=== PATIENT | female | born 1995 | race Hispanic/Latino ===

== ENCOUNTER 2017-04-16 10:39 | Emergency (ER) | payer OTHER ==
[~2017-04-16] VITALS: Ht 149.9 cm; Wt 44.9 kg
[~2017-04-16 10:39] MED LIST: Docusate Sodium PO; FERR159T2 PO; Ibuprofen PO; PREN-99 PO
[2017-04-16 10:48] VITALS: BP 116/70; PULSE 99; RESP 14; O2SAT 100
--- NOTE | 2017-04-16 12:29 | ED.REPORT ---
HPI- Female Date of Service Apr 16, 2017 ED Provider: Jacques Zayas PA-C Elicia is an otherwise healthy 21-year-old female presented with a chief complaint of swollen labia. Patient reports a 5 day history of vaginal itching , three-day history of swelling first on the left labia then bilaterally as well as clear discharge. Swelling and discharge were first noticed after sexual intercourse. Associated with dysuria, nausea, diarrhea. Symptoms were preceded by an extended period of vaginal bleeding, tampon use as well as right lower quadrant pain which was attributed to a copper IUD that was removed approximately 4 days ago. The symptoms have resolved. She reports a negative GC/Chlamydia test 3 weeks ago performed by [facility]. She has little concern for sexually transmitted infection. Denies fever, chills, malaise, hematuria. Denies new soaps or lotions. Nursing Notes Stated Complaint: SWOLLEN LABIA Chief Complaint: Female Abdominal Pain Nursing Notes Reviewed: Yes Allergies: Coded Allergies: citalopram (Verified Allergy, Unknown, 03/28/16) fluoxetine (Verified Allergy, Unknown, 03/28/16) paroxetine (Verified Allergy, Unknown, 03/28/16) tramadol (Verified Allergy, Unknown, Rash, 03/28/16) Uncoded Allergies: HYDROBROMIDE (Allergy, Unknown, 05/08/15) Scheduled ([Docusate Sodium]) 100 MG CAPSULE 100 MG PO BID Cephalexin (Cephalexin) 500 Mg Capsule 500 MG PO QID Doxycycline Monohydrate (Avidoxy) 100 Mg Tablet 100 MG PO BID Ferrous Sulfate, Dried (Iron) 159 Mg Tablet.er Unknown Dose PO DAILY Pnv95/Ferrous Fumarate/FA ( Multivitamins Tablet) 1 Each Tablet 1 EACH PO DAILY Scheduled PRN ([Ibuprofen]) 800 MG TABLET 600 MG PO Q6H PRN PRN For Pain General Time Seen by MD: 12:11 Chief Complaint Other (labia swelling) Sudden in Onset?: No Past Medical History Past Medical History 1 live 2 years ago Past Surgical History None reported Smoking History Current Every Day Smoker Social History Alcohol Use: Denies alcohol use Other Social History: Local resident Ambulatory Status Independent Review of Systems Negative unless stated otherwise in history of present illness Physical Exam General: Well appearing, well developed, well nourished, no acute distress. Head: Atraumatic, normocephalic. Eyes: No scleral icterus or injection. No discharge. Vision grossly intact. ENT: Voice clear, hearing grossly intact. Respiratory: Regular rate and rhythm. Breath sounds present, clear to auscultation and equal bilaterally. No respiratory distress. No increased work of breathing, speaks in complete sentences. Cardiovascular: Regular rate and rhythm, without murmur, gallop or rub. No pedal edema. Gastrointestinal: Abdomen flat and non-tender without guarding or rebound. Bowel sounds normoactive. : Labia minora edematous and tender bilaterally. Otherwise normal external genitalia without lesions. Slight white discharge noticed externally. Speculum examination reveals edematous cervix, copious mucopurulent discharge, dark curd-like discharge present in vaginal canal. No bleeding, lesions or masses noted. Mild right adnexal tenderness on bimanual exam. Negative cervical motion tenderness, left adnexal tenderness. Skin: Warm and dry. Neurological: Grossly nonfocal. Psychological: Alert and oriented. Speech appropriate, linear and logical. Behavior appropriate. Initial Vital Signs Vital Signs (First) Date Time Temp Pulse Resp B/P Pulse Ox O2 Delivery O2 Flow Rate FiO2 04/16/17 10:48 36.4 99 14 116/70 100 Room Air Initial VS: Vital signs normal Interpretation & Diagnostics Interpretation & Diagnostics: MAU WET PREP VAG OR REC Final 04/16/17-1332 WBCS FEW YEAST NONE SEEN CLUE CELLS NONE SEEN TRICHOMONAS NONE SEEN Lab Results Interpretation Result Diagram: 04/16/17 1315 04/16/17 1315 Test 04/16/17 12:34 04/16/17 13:15 Urine Color Yellow (YELLOW) Urine Appearance Hazy (CLEAR,HAZY) Urine pH 5.5 (5.0-8.0) Urine Specific [place] 1.025 (1.003-1.035) Urine Protein Tracemg/dL (NEG,TRACE) Urine Glucose (UA) Negativemg/dL (NEGATIVE) Urine Ketones 15mg/dL (NEGATIVE) Urine Occult Blood Trace (NEGATIVE) Urine Nitrite Negative (NEGATIVE) Urine Bilirubin Negative (NEGATIVE) Urine Urobilinogen Normalmg/dL (NORMAL) Urine Leukocyte Esterase Moderate (NEGATIVE) Urine RBC 3-10/hpf (0-2) Urine WBC 11-50/hpf (0-5) Urine Epithelial Cells Occasional/hpf (NONE-MOD) Urine Crystals None seen (NONE SEEN) Urine Bacteria Few/hpf (NONE-FEW) Urine Hyaline Casts None/lpf (NONE) Urine Granular Casts None seen (NONE SEEN) Urine Waxy Casts None seen (NONE SEEN) Urine Red Blood Cell Casts None seen (NONE SEEN) Urine White Blood Cell Casts None seen (NONE SEEN) Urine Mucus Present (None Seen) Urine Trichomonas None seen (NONE SEEN) Urine Yeast None (NONE SEEN) Urinalysis Comment None Urine Culture Reflexed Indicated White Blood Count 11.3th/mm3 (3.8-10.1) Red Blood Count 4.23mil/mm3 (3.90-5.20) Hemoglobin 12.8g/dL (12.0-15.6) Hematocrit 38.2% (35.0-46.0) Mean Corpuscular Volume 90.3fL (81-100) Mean Corpuscular Hemoglobin 30.3pg (27.0-35.0) Mean Corpuscular Hemoglobin Concent 33.5% (32.0-37.0) Red Cell Distribution Width 12.8% (12.3-15.4) Platelet Count 278bil/L (150-400) Neutrophils (%) (Auto) 74.2% (40-74) Lymphocytes (%) (Auto) 19.0% (14-46) Monocytes (%) (Auto) 5.6% (4-12) Eosinophils (%) (Auto) 0.6% (0-5) Basophils (%) (Auto) 0.4% (0-3) Sodium Level 138mEq/L (134-144) Potassium Level 4.0mEq/L (3.5-5.2) Chloride Level 103mEq/L (97-108) Carbon Dioxide Level 20mmol/L (18-29) Blood Urea Nitrogen 14mg/dL (6-20) Creatinine 0.71mg/dL (0.57-1.00) Estimat Glomerular Filtration Rate 147mL/min (>59) Glucose Level 80mg/dL (60-99) Calcium Level 9.2mg/dL (8.5-10.1) Total Bilirubin 0.5mg/dL (0.0-1.2) Aspartate Amino Transf (AST/SGOT) 22U/L (0-50) Alanine Aminotransferase (ALT/SGPT) 15U/L (0-32) Alkaline Phosphatase 40U/L (25-150) Total Protein 7.2g/dL (6.4-8.4) Albumin 4.2g/dL (3.4-5.0) US Focused non-OB Pelvis PROCEDURE: US PELVIC SONOGRAM + TRANSVAGINAL SONOGRAM INDICATIONS: right adnexal tenderness IMPRESSION: Gynecological surgical consultation is recommended. There is a left ovarian mass with prominent hyperechoic reflection and reverberation, extending peripherally into the posterior pelvic side wall. On review of the prior available CT from 03/28/16 a fatty mass at this ovary had been previously diagnosed, and this is considered to have likely enlarged in size over time with reference to the most recent ultrasound. A dermoid tumor is considered potentially premalignant gynecological consultation is definitely recommended in the near future for consideration of excision. A source of right-sided adnexal tenderness is not found. No sonographic evidence of acute appendicitis is seen. However, a normal or abnormal appendix is not located. Exam Performed by: Radiologist Re-Eval/Medical Decision Med Decision/Clinical Course Otherwise healthy 21-year-old female with a chief complaint of labia swelling associated with dysuria, vaginal itching, clear discharge. Denies fever, abdominal pain currently. Physical examination reveals a nontender abdomen, edematous and tender labia minora, edematous cervix with purulent discharge, mild right adnexal tenderness. Negative cervical motion tenderness, left adnexal tenderness. Vital signs normal, afebrile. CBC reveals mild leukocytosis at 11.3 with left shift. CMP is normal. Urinalysis is suggestive of infection with trace occult blood moderate leukocyte esterase, 3 day RBC, 11-53 BC few bacteria. Ketones are also noted. Wet prep reveals white blood cells, negative clue cells, negative yeast . negative. GC/Chlamydia test is sent. Ultrasound performed due to right adnexal tenderness, which is reassuring against a tubo-ovarian abscess. However the initial reading by the tech suggests a left ovarian cyst. On the final read by radiologist this is thought to be a more concerning dermoid tumor , requiring gynecological follow-up. This is noted after the patient is discharged and I have contacted the patient by phone to stress the importance of gynecological follow-up. At this time I reassured against a ectopic , tubo-ovarian cyst, pelvic inflammatory disease, yeast infection, bacterial vaginosis. I think this is likely gonorrhea/chlamydia and the patient is treated with IM Rocephin, oral doxycycline. Additionally suspect urinary tract infection which is treated with cephalexin. Advised Benadryl cream for itching and swelling of external genitalia. Advise that the patient's partner be assessed for GC/chlamydia, abstaining from sex until they are both treated. Advise regarding gynecological follow-up, emergency return precautions. Patient verbalizes understanding of and consents to the plan. Discharge & Departure Departure Notes Departure Notes: Prior to signing this note, I reviewed final results for pelvic ultrasound, which are now included above. Interpretation related orally to me by the tech previously suggested a left ovarian cyst, however the final read by the radiologist is more concerning for a premalignant tumor. Called the patient's primary number at [phone] and left a message asking the patient to call me back in the emergency department. Patient returned my call at 1955, and we discussed the ultrasound findings. I advised her to follow-up with her pool coordinator as soon as possible. She states that she understands this. Impression: Primary Impression: Purulent cervicitis Additional Impression: Urinary tract infection Urinary tract infection type: acute cystitis Hematuria presence: with hematuria Qualified Code: N30.01 - Acute cystitis with hematuria Disposition: Home Discharge Condition All VS Reviewed: Yes Patient Instructions: Cervicitis (ED) Additional Instructions: Evaluation in the emergency department for labia swelling includes history, physical examination, blood tests, urinalysis and ultrasound all of which suggests that you have an infection. This may be gonorrhea, chlamydia or possibly both. It also appears that you have a urinary tract infection, which is probably unrelated. We will treat you for gonorrhea and chlamydia, because these can become quite serious. Awaiting for lab results. Please contact the emergency department 4- 5 days to find out more. Be aware that this is a disease that can be dormant in a male or female partner for very long period of time. You were given given a shot of antibiotic here in the emergency department as well as her first dose of doxycycline. I will write a prescription for more doxycycline to be taken twice a day for 7 days. These medications are to treat the gonorrhea and chlamydia. I will also give a prescription for cephalexin to be taken 4 times a day for 7 days. This is to treat your urinary tract infection. Please follow up with her primary care provider in about one week to be sure this is progressing as expected. Returns to the emergency department for any new or worsening symptoms including fever, vomiting, increasing pain. Referrals: Law Wong MD (PCP) EDSupervising Provider for APC: Jason Bowen DO copies to: Law Wong MD, Seth PA-C Apr 16, 2017 12:29
[2017-04-16 13:22] LABS: BASOPHILS % (AUTO) 0.4 % (0-3); EOSINOPHILS % (AUTO) 0.6 % (0-5); MONOCYTES % (AUTO) 5.6 % (4-12); Mean Corpuscular Hemoglobin 30.3 pg (27.0-35.0); Mean Corpuscular Volume 90.3 fL (81-100); NEUTROPHILS % (AUTO) 74.2 % (40-74); Platelet Count 278 bil/L (150-400)
[2017-04-16 13:30] LABS: APPEARANCE,URINE HAZY (CLEAR,HAZY); COLOR,URINE YELLOW (YELLOW); OCCULT BLOOD,URINE TRACE (NEGATIVE); PH,URINE 5.5 (5.0-8.0); UROBILINOGEN,URINE NORMAL (NORMAL)
[2017-04-16] MEDS ORDERED: cefTRIAXone Inj 250 MG, Lidocaine PF 1% Inj 0.9 ML in Syringe 1 EACH IM ONE (15:15)
--- NOTE | 2017-04-16 15:38 | DRSVH ---
PROCEDURE: US PELVIC SONOGRAM + TRANSVAGINAL SONOGRAM INDICATIONS: right adnexal tenderness TECHNIQUE: Real-time scanning was performed of the pelvic organs, with image documentation. Additional endovagi nal scanning was necessary due to incomplete visualization of the adnexal and endometrial structures by transabdominal scanning. COMPARISON: [facility], CT, CT KUB, 03/28/2016, 13:15. FINDINGS: Transabdominal scanning: Limited scanning through the kidneys shows no hydronephrosis. No pathologi c free abdominal or pelvic fluid. Endovaginal scanning: Uterus: Uterus is normal in size at 3.5 x 5.5 x 7.2 cm, anteverted. The endometrium measures 9.4, m m in combined thickness, mildly heterogeneous. Ovaries: The right ovary measures 2.7 x 2.4 x 2.7 cm and appears normal. There is a possible left ov bin dermoid tumor measuring up to 3.2 x 2.8 x 2.9 cm involving the left ovary which overall includi ng the structure measures up to 3.7 x 2.5 x 1.9 cm. This results in the hyperechoic reflection exten ding from the ovary and projecting posteriorly into the periphery of the pelvic sidewall. IMPRESSION: Gynecological surgical consultation is recommended. There is a left ovarian mass with pr ominent hyperechoic reflection and reverberation, extending peripherally into the posterior pelvic si de wall. On review of the prior available CT from 03/28/16 a fatty mass at this ovary had been previo usly diagnosed, and this is considered to have likely enlarged in size over time with reference to th e most recent ultrasound. A dermoid tumor is considered potentially premalignant gynecological consu ltation is definitely recommended in the near future for consideration of excision. A source of right-sided adnexal tenderness is not found. No sonographic evidence of acute appendicit is is seen. However, a normal or abnormal appendix is not located. Dictated by: Javier Nguyen M.D. on 04/16/2017 at 15:30 Approved by: Javier Ngyuen M.D. on 04/16/2017 at 15:37
[2017-04-16] MEDS ORDERED: DOXY100T56 PO (16:02)
[2017-04-16] MEDS ORDERED: CEPH500C PO (16:02)
== END 2017-04-16 16:19 | disposition home or self-care (01) ==
LOC: SED 10:39
DX: N72 Inflammatory disease of cervix uteri (principal); N30.01 Acute cystitis with hematuria; R11.0 Nausea; R19.7 Diarrhea, unspecified; F17.200 Nicotine dependence, unspecified, uncomplicated; Z88.8 Allergy status to other drugs, medicaments and biological substances
CPT/HCPCS: 36415; 76830; 76856; 80053; 81000; 85025; 87086; 87088; 87210; 87491; 87591; 96372; 99285; J0696

== ENCOUNTER 2017-06-17 11:24 | Day surgery (SDC) | payer OTHER ==
[2017-06-17] VITALS (11 sets, daily range): BP systolic 100–121; BP diastolic 62–83; PULSE 58–85; RESP 7–18; O2SAT 100
[~2017-06-17] VITALS: Ht 149.9 cm; Wt 46.8 kg
[~2017-06-17 11:24] MED LIST changes: +CeFAZolin 2 Gm/50 mL D5W IV Premix IV ONE; -Docusate Sodium PO; -Ibuprofen PO; +LEVO1TAB59 PO; +Lactated Ringer's 1,000 ML IV SCH; -PREN-99 PO
[2017-06-17] MEDS ORDERED: Propofol 10,000 mCg/mL 20 mL Inj ONE (11:25)
[2017-06-17] MEDS ORDERED: fentaNYL-PF 50 mCg/mL 2 mL Inj ONE (11:25)
[2017-06-17] MEDS ORDERED: MetoCLOpramide 5 mg/mL 2 mL Inj ONE (11:25)
[2017-06-17] MEDS ORDERED: Dexamethasone 4 mg/mL Inj ONE (11:25)
[2017-06-17] MEDS ORDERED: Rocuronium 10 mg/mL 5 mL Inj ONE (11:25)
[2017-06-17] MEDS ORDERED: Ondansetron 2 mg/mL 2 mL Inj ONE (11:25)
[2017-06-17] MEDS ORDERED: Succinylcholine Chloride 20 mg/mL 5 mL Inj ONE (11:25)
[2017-06-17 13:05] LABS: BASOPHILS % (AUTO) 0.5 % (0-3); EOSINOPHILS % (AUTO) 0.4 % (0-5); MONOCYTES % (AUTO) 6.5 % (4-12); Mean Corpuscular Hemoglobin 29.4 pg (27.0-35.0); Mean Corpuscular Volume 88.8 fL (81-100); NEUTROPHILS % (AUTO) 64.9 % (40-74); Platelet Count 319 bil/L (150-400)
--- NOTE | 2017-06-17 13:17 | PCM.HPANE ---
Patient Data Surgeon Admitting Provider: Attending Provider:Law Wong MD Primary Care Physician:Paola Guteirrez MD Other Provider:Shruthi Farooqingham Anesthesia Reason for Visit Ovarian Mass Ht/WT & BMI Height (Feet): 4 Height (Inches): 11 Weight (Kilograms): 46.8 Body Mass Index 0.00 Allergies Coded Allergies: citalopram (Verified Allergy, Unknown, 06/16/17) fluoxetine (Verified Allergy, Unknown, 06/16/17) paroxetine (Verified Allergy, Unknown, 06/16/17) tramadol (Verified Allergy, Unknown, Rash, 06/16/17) Uncoded Allergies: HYDROBROMIDE (Allergy, Unknown, 05/08/15) Past Anesthesia History Anesthesia History: Denies:: Abnormal Airway, Anesthesia Reactions (Never had surgery), Difficult Intubation, Fam Anesthesia Reaction, Fam Malignant Hypertherm Diabetes History Hx Diabetes?: No MRSA MRSA: No Medications Reported Medications Levonorgestrel/Ethinyl Estradiol (Chateal)1 Each Tablet1 Tablet PO DAILY #1 PACK 06/16/17 Ferrous Sulfate, Dried (Iron)159 Mg Tablet.erUnknown Dose PO DAILY 05/08/15 Discontinued Reported Medications Pnv95/Ferrous Fumarate/FA ( Multivitamins Tablet)1 Each Tablet1 Each PO DAILY 05/08/15 Discontinued Scripts Cephalexin 500 Mg [id number] Mg PO QID #28 CAPSULE Ref 0 Prov:Jacques Zayas PA-C 04/16/17 Doxycycline Monohydrate (Avidoxy)100 Mg [id number] Mg PO BID #14 TABLET Prov:Jacques Zayas PA-C 04/16/17 [Ibuprofen] (Motrin)800 MG TABLET No Conflict [id number] Mg PO Q6H PRN For Pain # 40 TABLET Prov:Law Wong MD 05/09/15 [Docusate Sodium] (Colace)100 MG CAPSULE No Conflict [id number] Mg PO BID #60 CAPSULE Prov:Law Wong MD 05/09/15 History History of ENT Problems?: Yes HEENT History: Positive for:: TMJ (popps right side, occassionally stick open) Denies:: Abnormal Airway Difficult Intubation Dysphagia Hearing Problem Sinus Problem Denture Type: None Teeth Condition: Within Normal Limits Hx of Heart Problems?: No Cardiovascular History: Denies:: Congestive Heart Failure Hypertension Hx of Respiratory Problem?: No Respiratory History: Positive for:: Asthma (exercise induced) Use of Inhalers / NEBS (Albuterol) Denies:: COPD Chest Surgery Cough Dyspnea Emphysema Hemoptysis Pneumonia Pulmonary Embolism Tuberculosis Use of C-PAP Machine Other History/Comment No MDI use, no ED visits Hx Neurologic Problems?: Yes Neurological History: Positive for:: Dizziness Headaches (associated with hunger) Denies:: Alzheimer's Disease CVA Dementia Multiple Sclerosis Parkinson's Disease Seizures TIA Hx of GI Problems?: Yes Gastrointestinal History: Positive for:: Gastroesphageal Reflux Other History/Comment OTCs Hx of Problems?: No Genitourinary History: Denies:: Kidney Stones Urinary Tract Infection HX of Peritoneal Dialysis: No Female Hx: Denies:: Problems with Breasts? Other History/Comment Ovarian Cyst Skin History: Denies:: History Skin Disorders? Pressure Ulcers Hx Musculoskeletal Problems?: Yes Musculoskeletal History: Positive for:: Back Injury (mid back) Denies:: Degenerative Joint Fibromyalgia Joint Replacement Musculoskeletal Trauma Myasthenia Gravis Osteoarthritis Rheumatoid Arthritis Systemic Lupus Psycho Social History: Positive for:: Anxiety Hx Depression Hx Surgeries?: No Other History: Denies:: Cancer Endocrine Disease Hospitalization (child ) Thyroid Disease History Blood Transfusions: Positive for:: Accept Blood Products? Denies:: Blood Transfusions Hx Diabetes: No Hx Alcohol Use: NoHx Substance Use: No (smokes) Smoking Status: Current Every Day Smoker Have You Smoked inLast 12 mo: No Stop/Bang Treated for Sleep Apnea?: No S-Snoring: Do You Snore Loudly: No T-Tired: feel tired, fatigued: No O-Obsered: Observed not breath: No P-Blood Pressure: treated: No B- Body Mass Index > 35 kg/m2: No A- Age over 50: No N- Neck Large Circumference: No G- Gender Male: No JOSÉ MIGUEL Total Score: 0 Risk Assessment Category Category 1A: Patient has history of documented sleep apnea, and HAS NOT received any narcotic, sedative or anesthesia administration during this stay. Category 1B: Patient has history of documented sleep apnea, and HAS received any narcotic , sedative or anesthesia administration during this stay Category 2: Patient has SUSPECTED Obstructive Sleep Apnea, and HAS received any narcotic , sedative or anesthesia administration during this stay. Category 3: Patient has SUSPECTED Obstructive Sleep Apnea and HAS NOT received narcotic, sedative or anesthesia administration during this stay. Category 4: Outpatient in Procedural Areas with known sleep apnea or who screen positive for High Risk via the STOP/BANG questionnaire. Exam Exam Vital Signs Vital Signs Date Time Temp Pulse Resp B/P Pulse Ox O2 Delivery O2 Flow Rate FiO2 06/17/17 12:15 36.5 85 18 118/64 100 Room Air General Appearance: Alert, Oriented X3, Cooperative HEENT/AIRWAY: MP 1 Lungs: Clear to Auscultation Heart: Exam Unremarkable Meds/Labs/Diagnostics Labs Test 06/17/17 13:02 White Blood Count 11.0th/mm3 (3.8-10.1) Red Blood Count 4.29mil/mm3 (3.90-5.20) Hemoglobin 12.6g/dL (12.0-15.6) Hematocrit 38.1% (35.0-46.0) Mean Corpuscular Volume 88.8fL (81-100) Mean Corpuscular Hemoglobin 29.4pg (27.0-35.0) Mean Corpuscular Hemoglobin Concent 33.1% (32.0-37.0) Red Cell Distribution Width 13.2% (12.3-15.4) Platelet Count 319bil/L (150-400) Neutrophils (%) (Auto) 64.9% (40-74) Lymphocytes (%) (Auto) 27.5% (14-46) Monocytes (%) (Auto) 6.5% (4-12) Eosinophils (%) (Auto) 0.4% (0-5) Basophils (%) (Auto) 0.5% (0-3) Plan Impression Patient chart reviewed, patient interviewed and anesthestic plan with risks, benefits, and alternatives discussed, and informed consent obtained. ASA Physical Status: ASA2 Mod Systemic Disease Anesthetic Plan: GA Bene/Risks/Altern/Consents: Yes HP Complete Prior to Induction: Yes Herb Duque MD Jun 17, 2017 13:17
[2017-06-17] MEDS ORDERED: Lactated Ringer's 1,000 ML IV ONE ×2 (13:38→16:30)
[2017-06-17] MEDS ORDERED: Bupivacaine-MPF 0.5% W/EPI 30 mL Inj INJ ONE (14:20)
[2017-06-17] MEDS ORDERED: Lactated Ringer's 500 ML IV PRN (15:38)
[2017-06-17] MEDS ORDERED: Lactated Ringer's 1,000 ML IV SCH (15:38)
[2017-06-17] MEDS ORDERED: fentaNYL-PF 50 mCg/mL 2 mL Inj IVPUSH PRN (15:40)
[2017-06-17] MEDS ORDERED: Ondansetron 2 mg/mL 2 mL Inj IVPUSH PRN ×2 (15:40→16:05)
[2017-06-17] MEDS ORDERED: Phenylephrine 10,000 mCg/mL Inj IVPUSH PRN (15:40)
[2017-06-17] MEDS ORDERED: MetoCLOpramide 5 mg/mL 2 mL Inj IVPUSH PRN ×2 (15:40→16:05)
[2017-06-17] MEDS ORDERED: HYDROmorphone 1 mg/mL Inj IVPUSH PRN (15:40)
[2017-06-17] MEDS ORDERED: EPHEDrine Sulfate 50 mg/mL Inj IVPUSH PRN (15:40)
[2017-06-17] MEDS ORDERED: Dexamethasone 4 mg/mL Inj IVPUSH PRN (15:40)
[2017-06-17] MEDS ORDERED: Alum-Mag Hydrox-Simeth 30 mL Suspension PO PRN (16:05)
[2017-06-17] MEDS ORDERED: Senna-Docusate 8.6-50 mg Tablet PO PRN (16:05)
[2017-06-17] MEDS: Lactated Ringer's 1,000 ML IV SCH (16:52)
--- NOTE | 2017-06-17 17:11 | PCM.ANEP1 ---
Post Anesthesia PACU Phase 1 Assessment Vital Signs Vital Signs Date Time Temp Pulse Resp B/P Pulse Ox O2 Delivery O2 Flow Rate FiO2 06/17/17 16:30 76 14 110/62 100 Room Air 06/17/17 16:25 36.3 65 13 110/69 100 Room Air 06/17/17 16:20 60 13 105/64 100 Room Air 06/17/17 16:15 71 13 108/66 100 Room Air 06/17/17 16:10 66 14 113/63 100 Room Air 06/17/17 16:05 62 14 109/65 100 Room Air 06/17/17 16:00 58 15 109/83 100 Room Air 06/17/17 15:55 36.3 70 7 121/63 100 Room Air 06/17/17 12:15 36.5 85 18 118/64 100 Room Air Anesthetic Administered: GA Level of Alertness: Sleepy, easy to arouse CARR's with Equal Strength: Yes Pain: No Nausea or Vomiting: No CV Function & Hydration Stable: Yes Airway Device: Oralpharangeal Airway Lungs: Clear to Auscultation Dermatome Level: Full Sensation PACU Phase 2 Assessment Complications: No Follow up Care: No Patient Instructions Provided: N/A Herb Duque MD Jun 17, 2017 17:11
--- NOTE | 2017-06-17 17:28 | OP ---
[address] [address] OPERATIVE REPORT PATIENT: MAO WORKMAN : 1995 MR#: [id number] ADMIT: 06/17/2017 JOB ID: [id number] DATE OF SURGERY: 06/17/2017 SURGEON: Law Wong MD STATION REPAIRER: Prosper Brooks MD PREOPERATIVE DIAGNOSIS(ES): A 22-year-old, 2, para 0-1-1-1 with left ovarian mass that is 3.2 x 2.8 x 2.9 cm on ultrasound on April 16, 2017. The mass was 2.4 cm in largest diameter on March 28, 2016. Worsening sharp left lower quadrant pain. Combined oral contraceptive pills for three months course failed to improve symptoms. The patient opted for left oophorectomy with surgery as indicated. POSTOPERATIVE DIAGNOSIS(ES): A 22-year-old, 2, para 0-1-1-1 with left ovarian mass that is 3.2 x 2.8 x 2.9 cm on ultrasound on April 16, 2017. The mass was 2.4 cm in largest diameter on March 28, 2016. Worsening sharp left lower quadrant pain. Combined oral contraceptive pills for three months course failed to improve symptoms. The patient opted for left oophorectomy with surgery as indicated. Suspected left ovarian dermoid and endometriosis. ANESTHESIA: General endotracheal. ESTIMATED BLOOD LOSS: 30 mL. IV FLUIDS: 850 mL of crystalloid. URINE OUTPUT: At the end of the procedure around 30 mL of clear urine. SPECIMEN REMOVED: 1. Aspirate of left ovarian cyst fluid sent to cytology. 2. Left ovary. 3. Biopsy of suspected endometriosis peritoneal lesion. INTRAOPERATIVE FINDINGS: Examination under anesthesia revealed average sized anteverted uterus. Palpated left adnexal mass. No right adnexal masses appreciated. OPERATIVE FINDINGS: 1. Moderate amount of clear peritoneal fluid in the posterior cul-de-sac. 2. Normal fallopian tubes bilaterally. 3. Normal right ovary. 4. Enlarged left ovary with increased vascularity on the ovarian surface. Initially it was thought this looks like affected by two large cystic areas on the left ovary noted. Aspiration of the first one did not retrieve any fluid. Aspiration of the second one retrieved oily fluid with some darker pigmentation, which showed it to be a dermoid cyst. 5. Suspected endometriosis spots were noted on the upper margin of the left uterosacral ligament and on the peritoneal surface that is close to the upper edge of the right uterosacral ligament. That last lesion was completely excised and sent as an endometriosis biopsy for diagnosis confirmation. DESCRIPTION OF PROCEDURE: The procedure, risks, benefits, and alternatives of the procedure discussed with the patient. Informed consent signed. Patient moved to the OR with IV running. After general anesthesia found to be adequate the patient was examined under anesthesia with the above findings. The patient was in dorsal lithotomy position, prepped and draped in normal sterile fashion. Speculum inserted. The anterior lip of the cervix was grasped with a single-tooth tenaculum and the Rachel uterine manipulator was inserted. Good application confirmed. All instruments removed from the patient's vagina except the Rachel manipulator. Attention was then turned to the patient's abdomen, where a small infraumbilical incision was made with a scalpel after injecting 4 mL of 0.5% Marcaine with epinephrine. Using S retractors and Daniel clamps, the fascia was identified and entered between two Daniel clamps with Metzenbaum scissors. The fascial edges were tagged with 0-Vicryl suture for future use in the procedure. An 11 mm Violetta trocar and sleeve was introduced without difficulty and CO2 insufflation started. Adequate intra-abdominal placement was confirmed with the 5 mm scope. Examination of the abdomen revealed the above findings. Then, a second lower right lower quadrant 5 mm port was introduced in a similar fashion, injecting local analgesia, incising the skin with the scalpel, and introducing the 5 mm trocar and sleeve under direct visualization with the laparoscope. In a similar fashion, the left lower quadrant 5 mm port was introduced as well. Examination of the pelvic area revealed the above findings. The procedure started by grabbing the left ovary with the smooth grasper and with the laparoscopic needle aspirator the first cystic area in the ovary was aspirated but no fluid was retrieved; then, on a trial of aspiration of the second cystic area, thick oily fluid was retrieved with some black pigment. The decision was made to proceed with the left oophorectomy as previously planned. The left ovary was enlarged, but with smooth surface, with multiple vasculature observed on the surface of the ovary. The oophorectomy process started with the LigaSure blunt and 5 mm, grabbing and coagulating and cutting through the utero-ovarian ligament, and through the mesosalpinx with coagulation and cutting until the ovary was completely removed. Good hemostasis was assured. The specimen was inserted in the posterior cul-de-sac. Survey of the cul-de-sac revealed the above suspected endometriosis lesions. The one that was at the upper edge of the right uterosacral ligament was noted to be in a safer anatomical area. The lesion was pulled with the peritoneal surfaces with a grasper and the lesion was excised with LigaSure cutting device. Some bleeding at the peritoneal surface was gently coagulated with the LigaSure by pulling the peritoneal edges away from the underlying anatomical structures and coagulating the bleeding edge. Good hemostasis was assured. Suction irrigation confirmed hemostasis. The Endobag was introduced through the infraumbilical incision and the laparoscope was introduced through the right lower quadrant port and the left ovary specimen was retrieved from the infraumbilical incision completely using the Endobag. Good hemostasis assured that all sites after second suction irrigation. The right lower quadrant and the left lower quadrant laparoscopic ports were removed under direct visualization and then the abdomen was desufflated and the infraumbilical port was removed. The fascia closed in a continuous layer with the previously tagged 0-Vicryl suture in the infraumbilical incision. The skin at all sites was closed with 4-0 Vicryl suture. Good hemostasis assured. The patient tolerated the procedure well. Attention turned to the vagina where the Rachel manipulator was removed. Good hemostasis was assured. The patient tolerated the procedure well. Sponge, lap, needle, and instrument counts were correct x2. The patient was recovered in stable condition. Dr. Wong was present and scrubbed for the entire procedure.
--- NOTE | 2017-06-17 18:32 | NUR ---
Transfer to [facility] Pt. transferred to [facility] via mihir at 1645 in stable condition. Pt. retched a few times but then stated she felt better afterwards. Does not want any antiemetics at this time. Monahan draining to gravity. All lap sites clean dry and intact. Pt. states she has 3/10 pain which is tolerable. She does not have an appetite and I encouraged patient to rest until she feels good enough to try some clear liquids. Family at bedside at this time. No questions or concerns at this time.
[2017-06-17] MEDS: oxyCODONE-Acetamin 5-325 mg Tablet PO PRN (22:54)
[2017-06-18] MEDS: Lactated Ringer's 1,000 ML IV SCH ×2 (00:03→08:03)
[2017-06-18 00:13] VITALS: BP 110/58; PULSE 94; RESP 16; O2SAT 98
[2017-06-18 05:23] LABS: BASOPHILS % (AUTO) 0.1 % (0-3); EOSINOPHILS % (AUTO) 0 % (0-5); MONOCYTES % (AUTO) 7.4 % (4-12); Mean Corpuscular Hemoglobin 29.9 pg (27.0-35.0); Mean Corpuscular Volume 88.4 fL (81-100); NEUTROPHILS % (AUTO) 78.5 % (40-74); Platelet Count 317 bil/L (150-400)
[2017-06-18 05:37] VITALS: BP 104/63; PULSE 80; RESP 20; O2SAT 100
--- NOTE | 2017-06-18 05:50 | NUR ---
Pain / nausea resolved Pain well controlled with Toradol and Percocet prn. Nausea resolved, tolerated clear diet, advanced to general for breakfast; saline locked. Monahan d/c'd and pt voiding well. Ambulating safely independently. Hourly rounding ongoing.
[2017-06-18 07:58] VITALS: BP 105/75; PULSE 77; RESP 16; O2SAT 99
[2017-06-18] MEDS: oxyCODONE-Acetamin 5-325 mg Tablet PO PRN (08:13)
--- NOTE | 2017-06-18 10:39 | PCM.DIGYN ---
Surgical Discharge Instruction Dates of Hospitalization Date of Hospital Admission 06/17/17 Providers Admitting Physician: Primary Care Physician: Paola Gutierrez MD Attending Physician: Law Wong MD Diagnosis at Time of Discharge Diagnosis at time of discharge POD#1 S/P laparoscopic left oophorectomy with excision of suspected endometriosis lesion. Problems: Diet Discharge Diet: No restrictions Activity Discharge Activity-General: No lifting >10 pounds for 4-6 weeks, Other ( nothing in the vagina for 4 weeks.) Dressing and Incisional Care Dressing Care: Keep dressing clean, dry & intact Hygiene: May shower Follow Up Plan Follow-up Provider (F9): Law Wong MD Follow-up appointment: Weeks (2) Call your provider for: Fever, Chills, Shortness of breath, Drainage at incision, Heavy vaginal bleeding, Other (excessive pain not controlled with pain medications.) Law Wong MD Jun 18, 2017 10:39
[2017-06-18] MEDS ORDERED: OXYC1TAB24 PO (10:42)
[2017-06-18] MEDS ORDERED: DOCU-41 PO (10:42)
[2017-06-18] MEDS ORDERED: IBUP-1827 PO (10:42)
[2017-06-18] MEDS ORDERED: ONDA4TAB9 PO (10:42)
--- NOTE | 2017-06-18 12:08 | NUR ---
Discharge Pt discharged to home with family; pt walked off of unit to vehicle at 1209. A&OX3, CARR, IV dc'd intact, Dressing x3 lap sites CDI - steris/bandaids x2 and steris/gauge/tegaderm with minimal dry drainage. CareNotes and instructions provided on dc dx and s/sx to seek medical attention. Hard copy scripts provided to pt. All personal belongings in hand at dc. No questions/concerns left unanswered at dc.
--- NOTE | 2017-06-18 14:21 | DIS ---
[address] [address] DISCHARGE SUMMARY PATIENT: MAO WORKMAN : 1995 MR#: [id number] ADMIT: 06/17/2017 JOB ID: [id number] DIS: 06/18/2017 ADMISSION DIAGNOSIS: A 21-year-old, 2, para 0-1-1-1, with left ovarian mass that is increasing in size with worsening left lower quadrant pain and failed three months treatment with oral contraceptive. DISCHARGED ON: 06/18/2017 DISCHARGE DIAGNOSIS: Postoperative day number one, status post laparoscopic left oophorectomy, biopsy of endometriosis, and aspiration of left ovarian cyst fluid. For further details, please refer to the fully dictated notes. On the day of discharge, patient had no complaints. Voiding, ambulating, tolerating p.o. intake. Ins and outs for the last 8 hour shift is 1735 cc in, 750 cc out. Vital signs are blood pressure is 105/75. Respirations are 16. Pulse is 77. Temperature 37.3 degrees centigrade. Pulse ox is 99% on room air. Heart is regular rate and rhythm. Positive S1, S2. Lungs clear to auscultation bilaterally. Abdomen: Appropriate tenderness around laparoscopic incisions, nondistended abdomen. Positive bowel sounds. The laparoscopic incisions were all clean, dry, and intact with Steri-Strips in place. Perineum: No active bleeding. Lower extremities: No calf tenderness appreciated bilaterally. DISCHARGE PLAN: Patient will be discharged home in stable condition. Will follow up with Dr. Wong in the office in two weeks. Instructed to have nothing in the vagina for four weeks. No heavy lifting more than 10 pounds. Instructed to call for fever, chills, severe abdominal pain not controlled with medication, heavy vaginal bleeding, abnormal wound discharge or any other concerning symptoms. The patient will be discharged home on the following medications: 1. Percocet 5/325 one tablet every 6 hours as needed for severe pain. 2. Ibuprofen 600 mg every 6 hours as needed for moderate pain. 3. Colace 100 mg twice daily to avoid constipation. 4. Zofran oral dissolving tablets 4 mg every 4 hours to be dissolved in the mouth as needed for nausea and vomiting. The patient was instructed to continue with her oral contraceptive pills for control. The patient understood the discharge instructions. She will comply with the discharge plan. Please note labs at time of discharge were stable.
--- NOTE | 2017-06-21 16:15 | PATH ---
SURGICAL PATHOLOGY Attending Physician:Law Wong MD CASE STATUS: Signed Out PATIENT NAME: MAO WORKMAN PID: [id number] : 1995 DATE COLLECTED:06/17/2017 00:00 SPECIMEN: Left Ovarian Cyst Fluid CLINICAL HISTORY: Left Ovarian Cyst Fluid ICD-10 code not given FINAL DIAGNOSIS: LEFT OVARIAN CYST FLUID CYTOLOGY: NEGATIVE FOR MALIGNANT CELLS. ICD10 N83.2 GROSS DESCRIPTION: Received fresh on 06/18/2017 is approximately 5 cc of cloudy yellow fluid. Prepared are one cellblock and one ThinPrep slide. Vo MICRO DESCRIPTION: Examined are one H&E cell block slide and one Papanicolaou-stained thin Prep cytology slide. These show a few groups of bland epithelial cells. No psammoma bodies identified. No cytologically malignant cells identified. ICD-9 CODES: CPT CODES: 1: 51740, 68576 Electronically Signed Out Irma Nelson MD [facility] Pathology [facility] [address], [place] [address] Technical component performed at [facility], [facility] [address], [address]
== END 2017-06-18 12:09 | disposition home or self-care (01) ==
LOC: SAS 11:24 → OSC 16:45 → SAS 06-18 12:09
PROVIDERS: ATTEND Obstetrics & Gynecology
DX: N83.9 Noninflammatory disorder of ovary, fallopian tube and broad ligament, unspecified (principal); M26.601 Right temporomandibular joint disorder, unspecified; J45.990 Exercise induced bronchospasm; R42 Dizziness and giddiness; R51 Headache; K21.9 Gastro-esophageal reflux disease without esophagitis; F17.210 Nicotine dependence, cigarettes, uncomplicated; Z79.899 Other long term (current) drug therapy
CPT/HCPCS: 36415; 58661; 85025; J0330; J0690; J1100; J1885; J2250; J2405; J2704; J2765; J3010; J7120